=== PATIENT | female | born 1980 | race Caucasian/White ===

== ENCOUNTER 2016-08-01 12:00 | Emergency (ER) | payer OTHER ==
[~2016-08-01] VITALS: Ht 160 cm; Wt 73.3 kg
[~2016-08-01 12:00] MED LIST: MOTRIN800 MG PO
[2016-08-01 14:39] LABS: HEMATOCRIT 35.8 % (36.0-46.0); MCH 27.9 PG (29.0-34.0); MCHC 32.1 G/DL (30.0-36.0); MCV 86.9 FL (83-99); MEAN PLAT.VOLUME 9.8 uM^3 (9.5-12.4); PLATELET COUNT 218 K/uL (156-360); RBC DIS.WIDTH-SD 55.2 % (39-53); RED BLOOD COUNT 4.12 M/uL (3.80-5.20)
[2016-08-01 14:41] LABS: EOSINOPHIL (%) 0.1 % (0-5); IMMATURE GRANULOCYTE (%) 0.4 % (0.0-0.7); IMMATURE GRANULOCYTE COUNT 0.3 K/uL; LYMPHOCYTE COUNT 1.1 K/uL (1.0-2.8); MONOCYTE (%) 5.1 % (3-12); MONOCYTE COUNT 0.4 K/uL (0-0.8); NEUTROPHIL (%) 80.9 % (45-76); NEUTROPHIL COUNT 6.6 K/uL (1.8-6.4); WHITE BLOOD COUNT 8.2 K/uL (4.1-10.2)
[2016-08-01 14:46] LABS: CHLORIDE 111 mEq/L (99-109); POTASSIUM 3.7 mEq/L (3.7-5.4); SODIUM 140 mEq/L (136-147)
[2016-08-01 14:48] LABS: GLUCOSE 121 mg/dL (70-99)
[2016-08-01 14:49] LABS: ANION GAP 11 MEQ/L (2-14)
[2016-08-01 14:52] LABS: GFR ESTIMATE (CALCULATED) > 59 mL/min/
[2016-08-01 14:53] LABS: UREA NITROGEN (BUN) 4 mg/dL (9-23)
[2016-08-01 14:59] LABS: TROP-I INTERPRETATION NEGATIVE; TROPONIN-I < 0.01 ng/mL (0.0-0.30)
[2016-08-01 15:54] LABS: D-DIMER ELISA 2.58 mg/L FEU (< 0.57)
[2016-08-01 18:15] VITALS: BP 118/74
== END 2016-08-01 18:31 | disposition home or self-care (01) ==
LOC: EME 12:00 → RME 12:00
PROVIDERS: Physician Assistant
DX: O26.893 Other specified pregnancy related conditions, third trimester (principal); R07.9 Chest pain, unspecified; R00.0 Tachycardia, unspecified; R06.02 Shortness of breath; R11.0 Nausea; M79.89 Other specified soft tissue disorders; O09.523 Supervision of elderly multigravida, third trimester; Z3A.31 31 weeks gestation of pregnancy; Z87.891 Personal history of nicotine dependence
CPT/HCPCS: 71020; 71275; 80048; 83880; 84484; 85025; 85379; 93005; 93970; 99281; 99285; J7030

== ENCOUNTER 2016-09-25 16:49 | Inpatient (IN) | payer OTHER ==
[2016-09-25] VITALS (8 sets, daily range): BP systolic 95–132; BP diastolic 52–88
[~2016-09-25] VITALS: Ht 160 cm; Wt 77.1 kg
[2016-09-25] MEDS ORDERED: ONE-A-DAY ESSE1 EAC1 PO (17:30)
[2016-09-25] MEDS ORDERED: FERROUS SULFAT325 MG PO (17:30)
[2016-09-25] MEDS ORDERED: VITAMIN B122500 MCG PO (17:31)
[2016-09-25 19:15] LABS: EOSINOPHIL (%) 0.3 % (0-5); IMMATURE GRANULOCYTE (%) 0.4 % (0.0-0.7); INSTRUMENT ABS NEUTROPHIL CT 4.9 K/uL; LYMPHOCYTE COUNT 1.6 K/uL (1.0-2.8); MCH 28.6 PG (29.0-34.0); MCHC 33.1 G/DL (30.0-36.0); MCV 86.4 FL (83-99); MEAN PLAT.VOLUME 9.9 uM^3 (9.5-12.4); MONOCYTE (%) 9.2 % (3-12); MONOCYTE COUNT 0.7 K/uL (0-0.8); NEUTROPHIL (%) 68.1 % (45-76); NEUTROPHIL COUNT 4.9 K/uL (1.8-6.4); PLATELET COUNT 203 K/uL (156-360); RBC DIS.WIDTH-CV 17.2 % (11.8-14.6); RBC DIS.WIDTH-SD 54.4 % (39-53); RED BLOOD COUNT 4.05 M/uL (3.80-5.20); WHITE BLOOD COUNT 7.3 K/uL (4.1-10.2)
[2016-09-26] VITALS (30 sets, daily range): BP systolic 101–154; BP diastolic 55–83
[2016-09-26] MEDS ORDERED: MOTRIN800 MG PO (21:28)
[2016-09-26] MEDS ORDERED: PERCOCET 5/31 TABLET PO (21:28)
[2016-09-27] VITALS (9 sets, daily range): BP systolic 108–130; BP diastolic 55–77
[2016-09-27 07:28] LABS: EOSINOPHIL (%) 0 % (0-5); HEMATOCRIT 30.1 % (36.0-46.0); IMMATURE GRANULOCYTE (%) 0.5 % (0.0-0.7); IMMATURE GRANULOCYTE COUNT 0.1 K/uL; INSTRUMENT ABS NEUTROPHIL CT 9.4 K/uL; LYMPHOCYTE COUNT 1.2 K/uL (1.0-2.8); MCH 28.2 PG (29.0-34.0); MCHC 32.2 G/DL (30.0-36.0); MCV 87.5 FL (83-99); MEAN PLAT.VOLUME 10.1 uM^3 (9.5-12.4); MONOCYTE (%) 7.7 % (3-12); MONOCYTE COUNT 0.9 K/uL (0-0.8); NEUTROPHIL (%) 81.4 % (45-76); NEUTROPHIL COUNT 9.4 K/uL (1.8-6.4); PLATELET COUNT 152 K/uL (156-360); RBC DIS.WIDTH-CV 17.3 % (11.8-14.6); RBC DIS.WIDTH-SD 55.8 % (39-53); RED BLOOD COUNT 3.44 M/uL (3.80-5.20)
[2016-09-27 07:43] LABS: WHITE BLOOD COUNT 11.6 K/uL (4.1-10.2)
[2016-09-28 03:29] VITALS: BP 125/76
[2016-09-28 07:30] VITALS: BP 114/75
== END 2016-09-28 11:20 | disposition home or self-care (01) | DRG 766 ==
LOC: LDRP-OP 16:49 → 2WEST 16:50 → LDRP-OP 10-28 09:19
PROVIDERS: Midwife; Obstetrics & Gynecology
PROC: 3E0P7GC Introduction of Other Therapeutic Substance into Female Reproductive, Via Natural or Artificial Opening (ICD-10-PCS; 2016-09-25)
PROC: 10D00Z1 Extraction of Products of Conception, Low, Open Approach (ICD-10-PCS; principal; 2016-09-26)
PROC: 00HU33Z Insertion of Infusion Device into Spinal Canal, Percutaneous Approach (ICD-10-PCS; 2016-09-26)
PROC: 3E0R3CZ (ICD-10-PCS; 2016-09-26)
DX: O62.0 Primary inadequate contractions (principal); O76 Abnormality in fetal heart rate and rhythm complicating labor and delivery; O69.82X0 Labor and delivery complicated by other cord entanglement, without compression, not applicable or unspecified; O99.824 Streptococcus B carrier state complicating childbirth; Z3A.39 39 weeks gestation of pregnancy; Z37.0 Single live birth; Z87.891 Personal history of nicotine dependence
CPT/HCPCS: 85025; 86900; 86901; C1755; G0378; J0595; J0690; J1200; J2175; J2274; J2405; J2540; J3010; J7120